=== PATIENT | female | born 1970 | race Caucasian/White ===

== ENCOUNTER 2024-08-21 06:22 | Day surgery (SDC) | payer OTHER, SELFPAY | END 2024-08-21 12:24 | disposition home or self-care (01) | LOC: GI 06:22 | PROVIDERS: ATTENDING PHYSICIAN Internal Medicine | DX: Z12.11 Encounter for screening for malignant neoplasm of colon (principal); K57.30 Diverticulosis of large intestine without perforation or abscess without bleeding; D12.3 Benign neoplasm of transverse colon; K63.5 Polyp of colon; K63.89 Other specified diseases of intestine | CPT/HCPCS: 45385; 45380; 88305 ==

== ENCOUNTER → 2024-09-15 13:28 | Outpatient (REF) | payer OTHER, SELFPAY | LOC: WDC 13:28 | PROVIDERS: ATTENDING PHYSICIAN Family Medicine | DX: Z12.31 Encounter for screening mammogram for malignant neoplasm of breast (principal) | CPT/HCPCS: 77063; 77067 ==